=== PATIENT | female | born 1970 | race Caucasian/White ===

== ENCOUNTER → 2018-02-10 | Day surgery (SDC) | payer OTHER ==
[~2018-02-10] MED LIST: DICY20TA3 PO; ELET40TA PO; GABA-586 PO; IV RINGERS,LACTATED 1000ML 1,000 ML IV SCH; LEVO5TAB29 PO; NALT50TA PO; PANT20TA2 PO; PROG200C2 PO; PROPOFOL 20 ML IV ONE; THYR65TA5 PO
[2018-02-10 11:28] LABS: U PREG PATIENT POSITIVE (NEG)
[2018-02-10 13:06] VITALS: BP 140/69
--- NOTE | 2018-02-14 14:12 | PATHOLOGY ---
[facility] Accession Number: [id number] . 01 Material submitted: . RANDOM COLON BX . 01 Clinical history: . Change in bowel habits . 02 Diagnosis: Colonic mucosa, random colon biopsies: - No significant pathologic abnormalities. [facility]/02/14/2018 . 02 Comment: Sections of the random colon biopsy reveal multiple segments of colonic mucosa containing several mucosal-associated lymphoid aggregates. There is no evidence of a chronic destructive colitis, lymphocytic colitis or collagenous colitis. (JPM:[facility] 02/14/2018) . 02 Electronically signed: . Murali Canas MD, Pathologist NPI- [id number] . 01 Gross description: . The specimen is received in formalin, labeled "Stephanie Gagnon, random colon biopsy". Received are multiple (greater than 10) segments of pale [place] soft tissue ranging in size from 0.3 to 0.6 cm in maximum dimensions. The specimen is submitted entirely in cassette A1. ([facility]; 02/11/2018) QAC/QAC . 02 Pathologist provided ICD-10: R19.4 . 02 CPT . 442189 Performed at: [facility] [address] [facility] [address], [place] [id number] MD Alex Perez MD Phone: [phone] Performed at: [facility] [address], [place] [id number] MD Murali Canas MD Phone: [phone]
== END | disposition home or self-care (01) ==
LOC: ENDOS 10:51
PROVIDERS: ATTEND Internal Medicine Gastroenterology
DX: R19.4 Change in bowel habit (principal); Z88.2 Allergy status to sulfonamides; G43.909 Migraine, unspecified, not intractable, without status migrainosus; Z88.8 Allergy status to other drugs, medicaments and biological substances; Z79.899 Other long term (current) drug therapy; Z98.890 Other specified postprocedural states; E06.3 Autoimmune thyroiditis; E03.9 Hypothyroidism, unspecified; Z82.49 Family history of ischemic heart disease and other diseases of the circulatory system; Z80.3 Family history of malignant neoplasm of breast; Z72.89 Other problems related to lifestyle; Z87.891 Personal history of nicotine dependence
CPT/HCPCS: 45380; 81025; 88305; J2704